=== PATIENT | male | born 1975 | race Caucasian/White ===

== ENCOUNTER 2020-12-14 12:43 | Outpatient (CLI) | payer OTHER, SELFPAY | END 2020-12-14 12:44 | disposition home or self-care (01) | LOC: ANHBWCAUD 12:44 | PROVIDERS: PCP Family Medicine; Visit Provider Family Medicine | DX: H91.92 Unspecified hearing loss, left ear (principal) | CPT/HCPCS: 92557; 92567 ==

== ENCOUNTER 2022-06-20 01:08 | Day surgery (SDC) | payer OTHER, SELFPAY ==
[2022-06-13 11:04] VITALS: BMI 33.0
--- NOTE | 2022-06-19 14:00 | P.PNAN_ITS ---
Anes - Initial Pre Proc Eval Procedure: Operation Date: 06/20/22 08:30 Proposed Procedures p Screening Colonoscopy - Tyron Leigh MD Date/Time: 06/19/22 14:00 Surgeon: Tyron Leigh MD Pre Op Diagnosis: neoplasm screening Patient Data Age: 47 Gender: M Height: 1.75 m Weight: 101.4 kg Allergies Allergy/AdvReac Type Severity Reaction Status Date / Time aspirin Allergy Itching Verified 06/20/22 07:18 Penicillins Allergy Rash Verified 06/20/22 07:05 Home Medications Medication Instructions Recorded Confirmed Type peg 3350-electrolytes 236 240 ml PO Q10M #4,000 mL 06/07/22 06/13/22 Rx gram-22.74 gram-6.74 gram-5.86 gram solution (Golytely) albuterol sulfate 2.5 mg/3 mL 2.5 mg continuous nebulization TID 06/13/22 06/13/22 History (0.083 %) solution for nebulization albuterol sulfate 90 mcg/actuation 90 mcg inhalation PRN PRN 06/13/22 06/13/22 History aerosol inhaler Shortness Of Breath atorvastatin 40 mg tablet 40 mg PO DAILY 06/13/22 06/13/22 History baclofen 10 mg tablet 10 mg PO DAILY 06/13/22 06/13/22 History bupropion HCl 100 mg tablet,12 hr 100 mg PO BID 06/13/22 06/13/22 History sustained-release furosemide 20 mg tablet 10 mg PO DAILY 06/13/22 06/13/22 History ibuprofen 800 mg tablet 800 mg PO TID pain 06/13/22 06/13/22 History lisinopril 20 mg tablet 20 mg PO DAILY 06/13/22 06/13/22 History omeprazole 40 mg capsule,delayed 40 mg PO DAILY 06/13/22 06/13/22 History release Patient hx anesthesia problems: none Family hx anesthesia problems: none Results Review: All pre-operative results and documents have been reviewed as part of the pre- operative evaluation. [facility] [place] Past Medical History Medical History (Updated 06/20/22 @ 07:26 by Tyron Leigh MD) ADHD COPD (chronic obstructive pulmonary disease) Hyperlipidemia Hypertension Social History Social History Smoking packs per day: 0.5 Smoking cigarettes per day: 10.0 Years smoked: 33 Smoking pack-years: 16.50 Smoking status: Current every day smoker Tobacco type: cigarettes Alcohol intake: never Substance use: never Substance use type: does not use Living arrangements: with family Additional living arrangements comments: lives with uncle Spiritual care concerns: No Anes - Eval Final PreProcedure Day of Procedure 06/19/22 14:00 Patient weight: obese Heart: regular rate and rhythm Lungs: clear to auscultation Airway: Mallampati scale class II Neurological: alert and oriented Last oral intake: >/= 8 hours ASA classification: III Emergent: no Anesthetic plan: proceed Anesthesia type and monitoring: general GIVS and standard monitoring Results Review: All pre-operative results and documents have been reviewed as part of the pre- operative evaluation. Informed Consent: The patient's anesthetic plan and its attendant risks and benefits were di scussed with the patient/family/POA. Questions were solicited and answers provided to the satisfaction of the patient/family/POA.
[2022-06-20 07:05] VITALS: BP 153/99; PULSE 81; RESP 18; TEMP 36.4; O2SAT 100
[2022-06-20] MEDS: LACTATED RINGERS 1,000 ML 150 ML IV CONT (07:17)
--- NOTE | 2022-06-20 07:25 | PM.IMHP ---
H&P: HPI History of Present Illness Date/Time: 06/20/22 07:25 Chief Complaint: Neoplasia screening. Narrative: This is a 47-year-old white male patient presents for screening colonoscopy. Patient's current bowel habits are normal. He denies any bleeding. He has had perhaps 30lb of weight loss over recent months. He denies any change in his bowel habits he has had no bleeding. His family history is noncontributory. Neoplasia screening colonoscopy has been arranged. Review of Systems Review of Systems: Review of systems noncontributory. [facility] Past Medical History Medical History (Updated 06/20/22 @ 07:26 by Tyron Leigh MD) ADHD COPD (chronic obstructive pulmonary disease) Hyperlipidemia Hypertension Social History Social History Smoking packs per day: 0.5 Smoking cigarettes per day: 10.0 Years smoked: 33 Smoking pack-years: 16.50 Smoking status: Current every day smoker Tobacco type: cigarettes Alcohol intake: never Substance use: never Substance use type: does not use Living arrangements: with family Additional living arrangements comments: lives with uncle Spiritual care concerns: No Meds Home Medications and Allergies Home Medications Medication Instructions Recorded Confirmed Type peg 3350-electrolytes 236 240 ml PO Q10M #4,000 mL 06/07/22 06/13/22 Rx gram-22.74 gram-6.74 gram-5.86 gram solution (Golytely) albuterol sulfate 2.5 mg/3 mL 2.5 mg continuous nebulization TID 06/13/22 06/13/22 History (0.083 %) solution for nebulization albuterol sulfate 90 mcg/actuation 90 mcg inhalation PRN PRN 06/13/22 06/13/22 History aerosol inhaler Shortness Of Breath atorvastatin 40 mg tablet 40 mg PO DAILY 06/13/22 06/13/22 History baclofen 10 mg tablet 10 mg PO DAILY 06/13/22 06/13/22 History bupropion HCl 100 mg tablet,12 hr 100 mg PO BID 06/13/22 06/13/22 History sustained-release furosemide 20 mg tablet 10 mg PO DAILY 06/13/22 06/13/22 History ibuprofen 800 mg tablet 800 mg PO TID pain 06/13/22 06/13/22 History lisinopril 20 mg tablet 20 mg PO DAILY 06/13/22 06/13/22 History omeprazole 40 mg capsule,delayed 40 mg PO DAILY 06/13/22 06/13/22 History release Allergies Allergy/AdvReac Type Severity Reaction Status Date / Time aspirin Allergy Itching Verified 06/20/22 07:18 Penicillins Allergy Rash Verified 06/20/22 07:05 Vital Signs Vital Signs - 24 hr 06/20/22 07:05 Temperature 97.6 F Pulse Rate 81 Respiratory Rate 18 Blood Pressure 153/99 H Pulse Oximetry 100 Oxygen Delivery Room Air Exam Narrative: Physical exam reveals patient to be alert. Vital signs stable. HEENT exam is unremarkable. Patient is anicteric. Lungs are clear to auscultation and percussion. Heart is without murmur or extra sounds. Abdominal exam bowel sounds are present soft nontender with no organomegaly. Digital external rectal exam is normal. Assessment and Plan Assessment and plan (1) Encounter for screening colonoscopy: Code(s): Z12.11 - Encounter for screening for malignant neoplasm of colon Status: Acute Assessment and Plan: Patient presents for screening colonoscopy. Appears to be at average risk for colon polyps. Further recommendations will be given after endoscopy. (2) Weight loss: Code(s): R63.4 - Abnormal weight loss Status: Acute Assessment and Plan: Patient has had some unintentional weight loss. Apparently lab workup is negative. Would advised patient to a count his calories. Continue to monitor weights on a weekly basis at this point.
[2022-06-20 08:26] VITALS: BP 141/90; PULSE 76; RESP 23; O2SAT 99
[2022-06-20 08:36] VITALS: BP 145/101; PULSE 74; RESP 22; O2SAT 100
[2022-06-20 08:46] VITALS: BP 155/106; PULSE 69; RESP 18; O2SAT 100
== END 2022-06-20 08:54 | disposition home or self-care (01) ==
PROVIDERS: PCP Family Medicine; Visit Provider Internal Medicine Gastroenterology
PROC: 0DJD8ZZ Inspection of Lower Intestinal Tract, Via Natural or Artificial Opening Endoscopic (ICD-10-PCS; CPT 45378; principal; 2022-06-20 08:30)
DX: Z12.11 Encounter for screening for malignant neoplasm of colon (principal); K64.8 Other hemorrhoids; J44.9 Chronic obstructive pulmonary disease, unspecified; F90.9 Attention-deficit hyperactivity disorder, unspecified type; I10 Essential (primary) hypertension; E78.5 Hyperlipidemia, unspecified; F17.210 Nicotine dependence, cigarettes, uncomplicated; Z79.51 Long term (current) use of inhaled steroids; E66.9 Obesity, unspecified; Z68.32 Body mass index [BMI] 32.0-32.9, adult
CPT/HCPCS: 45378; J2001; J2704; J7120